=== PATIENT | male | born 1955 | race Caucasian/White ===

== ENCOUNTER → 2016-11-17 | Outpatient (CLI) | payer BC ==
--- NOTE | 2016-11-17 20:08 | DI ---
PA /LATERAL CHEST X-RAY, 11/17/2016 5:08 PM : Clinical History: Chest congestion. Previous Exam: 02/11/2015. There is no acute soft tissue or bony abnormality. Heart size is normal. Lungs are clear. Mediastinal structures are normal. There are no pulmonary nodules. Reading: Normal chest x-ray. There has been no interval change.
== END ==
LOC: MOB RAD 17:10
DX: R05 Cough (principal); R09.89 Other specified symptoms and signs involving the circulatory and respiratory systems; F17.200 Nicotine dependence, unspecified, uncomplicated
CPT/HCPCS: 71020

== ENCOUNTER 2019-07-07 09:56 | Observation (INO) ==
[~2019-07-07 09:56] MED LIST: ACETAMINOPHEN 500 MG TABLET PO ONE; CELECOXIB 200 MG CAPSULE PO ONE; Gabapentin 600 MG TABLET PO ONE; LIDOCAINE W/ SODIUM BICARB 0.5 ML SYR ONE; LIDOCAINE W/ SODIUM BICARB 0.5 ML SYR SUBD ONE; Lactated Ringers 1,000 ML PRIMARY IV ONE; Nasal Sanitizer POPSWAB ampule 3 AMP (Nozin) PREOP DOSE ENOS SCH; PANTOPRAZOLE 20 MG TABLET.DR PO ONE; Sodium Chloride 0.9% 250 ML ONE; Vancomycin Inj 1.25gm vial IV ONE; Vancomycin-PHA to Dose IV PRN; ceFAZolin Inj 2gm (Premix) 2 GM/50 ML BAG IV ONE
[2019-07-07] MEDS ORDERED: Gabapentin 600 MG TABLET PO ONE (10:05)
[2019-07-07] MEDS ORDERED: ACETAMINOPHEN 500 MG TABLET PO ONE (10:06)
[2019-07-07] MEDS ORDERED: PANTOPRAZOLE 20 MG TABLET.DR PO ONE (10:06)
[2019-07-07] MEDS ORDERED: CELECOXIB 200 MG CAPSULE PO ONE (10:06)
[2019-07-07 10:23] LABS: BILIRUBIN,URINE NEGATIVE (NEG); CLARITY,URINE CLEAR (CLEAR); COLOR,URINE YELLOW (Y); GLUCOSE, URINE (UA) NEGATIVE (NEG); OCCULT BLOOD,URINE NEGATIVE (NEG); PROTEIN,URINE NEGATIVE (NEG); URINE SAMPLE TYPE CLEAN CATCH URINE; UROBILINOGEN,URINE 0.2 EU/dL (0.2)
[2019-07-07] MEDS ORDERED: PROPOFOL 10 MG/1 ML (200 MG/20 ML) VIAL IV ONE ×2 (11:17→14:21)
[2019-07-07] MEDS ORDERED: MIDAZOLAM 5 MG/1 ML ONE (11:18)
[2019-07-07] MEDS ORDERED: fentaNYL Inj 250 MCG/5 ML VIAL ONE (11:18)
[2019-07-07] MEDS ORDERED: LIDOCAINE MPF 2% - 5 ML (20 MG/1 ML) ONE (11:18)
[2019-07-07] MEDS ORDERED: REMIFENTANIL HCL 2 MG VIAL IV ONE ×2 (11:22→14:52)
[2019-07-07] MEDS ORDERED: Propofol 1,000 MG/100 ML VIAL IV ONE ×2 (11:27→15:09)
[2019-07-07] MEDS ORDERED: Sodium Chloride 0.9% vial 10 ML ONE (12:12)
[2019-07-07] MEDS ORDERED: BACITRACIN 50,000 UNIT VIAL IRRIG ONE (12:13)
[2019-07-07] MEDS ORDERED: THROMBIN (BOVINE) 20,000 UNIT KIT TOPICAL ONE (12:13)
[2019-07-07] MEDS ORDERED: BUTORPHANOL TARTRATE 2 MG/1 ML VIAL ONE (13:25)
[2019-07-07] MEDS ORDERED: LIDOCAINE HCL 2 % 10 ML JELLY URO-JECT TOPICAL ONE (13:28)
[2019-07-07] MEDS ORDERED: DEXMEDETOMIDINE HCL 200 MCG/2 ML VIAL IV ONE (14:02)
[2019-07-07] MEDS ORDERED: KETAMINE 100 MG/1 ML - 5 ML ONE (14:04)
[2019-07-07] MEDS ORDERED: LIDOCAINE HCL 2 % 10 ML JELLY URO-JECT TOPICAL PRN (14:15)
[2019-07-07] MEDS ORDERED: LIDOCAINE W/ SODIUM BICARB 0.5 ML SYR SUBD PRN (14:54)
[2019-07-07] MEDS ORDERED: HYDROmorphone 2 MG/1 ML IVP PRN (14:54)
[2019-07-07] MEDS ORDERED: DIAZEPAM 10 MG/2 ML (5 MG/1 ML) CARPUJECT IVP PRN (14:55)
[2019-07-07] MEDS ORDERED: Lactated Ringers 1,000 ML PRIMARY IV ONE (15:33)
[2019-07-07] MEDS ORDERED: HYDROmorphone 2 MG/1 ML ONE (16:56)
[2019-07-07] MEDS ORDERED: DIAZEPAM 10 MG/2 ML (5 MG/1 ML) CARPUJECT ONE (17:04)
[2019-07-07] MEDS ORDERED: Ondansetron ODT Tab 4 MG TAB PO PRN (17:52)
[2019-07-07] MEDS ORDERED: LABETALOL 20 MG/4 ML (5 MG/1 ML) SYRINGE IVP PRN (17:52)
[2019-07-07] MEDS ORDERED: HYDRALAZINE 20 MG/1 ML IVP PRN (17:52)
[2019-07-07] MEDS ORDERED: Zolpidem Tab 5 MG TAB PO PRN (17:52)
[2019-07-07] MEDS ORDERED: ACETAMINOPHEN 325 MG TABLET PO PRN (17:52)
[2019-07-07] MEDS ORDERED: CALCIUM CARBONATE 500 MG (TUMS) CHEWABLE TABLET PO PRN (17:52)
[2019-07-07] MEDS ORDERED: ONDANSETRON 4 MG/2 ML VIAL IVP PRN (17:52)
[2019-07-07] MEDS ORDERED: D5-1/2NS + 20mEq KCL 1,000 ML PRIMARY IV SCH (17:52)
[2019-07-07] MEDS ORDERED: MORPHINE SULFATE 2 MG/1 ML IVP PRN (17:52)
[2019-07-07] MEDS ORDERED: DOCUSATE 100 MG CAPSULE PO PRN (17:52)
[2019-07-07] MEDS: oxyCODONE-ACETAMINOPHEN 5-325 TAB PO PRN ×2 (19:00→23:07)
[2019-07-07] MEDS: MORPHINE SULFATE 2 MG/1 ML IVP PRN (19:26)
[2019-07-07] MEDS: ceFAZolin Inj 1 GM in Sodium Chloride 0.9% 100 ML IV SCH (21:10)
[2019-07-08] MEDS ORDERED: DIAZEPAM 10 MG/2 ML (5 MG/1 ML) CARPUJECT IVP PRN (00:12)
[2019-07-08] MEDS ORDERED: DIAZEPAM 5 MG TABLET PO PRN (00:15)
[2019-07-08] MEDS: oxyCODONE-ACETAMINOPHEN 5-325 TAB PO PRN ×2 (04:20→09:00)
[2019-07-08] MEDS: ceFAZolin Inj 1 GM in Sodium Chloride 0.9% 100 ML IV SCH (04:21)
[2019-07-08] MEDS: MORPHINE SULFATE 2 MG/1 ML IVP PRN (05:06)
[2019-07-08 06:40] VITALS: BP 148/95; TEMP 97.9; O2SAT 94
[2019-07-08 07:16] VITALS: RESP 18
[2019-07-08] MEDS ORDERED: Influenza 19-20 Vaccine (6mo+) 60 MCG/0.5 ML SYRINGE IM ONE (10:14)
== END 2019-07-08 11:05 | disposition home or self-care (01) ==
LOC: OR 09:56 → MED/SURG 09:56
PROVIDERS: ADMIT Neurological Surgery; ATTEND Neurological Surgery